=== PATIENT | male | born 1980 | race Two or more races ===

== ENCOUNTER 2024-12-29 06:45 | Day surgery (SDC) | payer MEDICAID, SELFPAY ==
[2024-12-26 11:19] VITALS: BMI 29.9
[2024-12-29] VITALS (10 sets, daily range): BP systolic 113–155; BP diastolic 76–100; PULSE 63–88; RESP 13–23; TEMP 36.2–37.1; O2SAT 96–100; BMI 30.7
[2024-12-29] MEDS: SODIUM CHLORIDE 0.9% 500 ML 500 ML 125 ML IV (07:20)
[2024-12-29] MEDS: DiphenhydrAMINE INJ 50 MG/ML VIAL 25 MG IV (07:29)
[2024-12-29] MEDS: MIDAZOLAM INJ 1 MG/ML VIAL 2 ML (ASD USE ONLY) 2 MG IV (07:33)
[2024-12-29] MEDS: fentaNYL CIT INJ 50 mCg/ML AMP 2ML (ASD USE ONLY) IV (07:35)
[2024-12-29] MEDS: SIMETHICONE 40 MG/0.6 ML ORAL SYRINGE PO (07:38)
== END 2024-12-29 08:32 | disposition home or self-care (01) ==
PROVIDERS: PCP Family Medicine; Referring Provider Surgery; Visit Provider Surgery
PROC: 0DBE8ZX Excision of Large Intestine, Via Natural or Artificial Opening Endoscopic, Diagnostic (ICD-10-PCS; CPT 45380; principal; 2024-12-29 07:30)
DX: D12.2 Benign neoplasm of ascending colon (principal); K64.1 Second degree hemorrhoids; K57.31 Diverticulosis of large intestine without perforation or abscess with bleeding
CPT/HCPCS: 45385; J1200; J2250; J3010; J7040; A9270